=== PATIENT | female | born 1985 | race Caucasian/White ===

== ENCOUNTER 2016-08-15 22:30 | Emergency (ER) | payer OTHER ==
[~2016-08-15] VITALS: Ht 170.2 cm; Wt 69.2 kg
[2016-08-15] MEDS ORDERED: ROBITUSSIN AC,T10 ML PO (23:50)
[2016-08-15] MEDS ORDERED: PREDNISONE20 MG PO ×2 (23:50→23:53)
[2016-08-15] MEDS ORDERED: DOXYCYCLINE HY100 MG PO (23:53)
[2016-08-15 23:59] VITALS: BP 135/95
== END 2016-08-15 23:59 | disposition home or self-care (01) ==
LOC: EXP 22:30 → EME 22:30 → EXP 23:59
DX: R05 Cough (principal); F17.200 Nicotine dependence, unspecified, uncomplicated
CPT/HCPCS: 71020; 80048; 85027; 99281; 99283; J7512